=== PATIENT | male | born 1955 | race African-American/Black ===

== ENCOUNTER 2025-04-05 10:49 | Emergency (ER) | payer MEDICARE, MEDICAID ==
[~2025-04-05] VITALS: Ht 188 cm; Wt 109.0 kg
[2025-04-05 10:51] VITALS: O2SAT 99
[2025-04-05] MEDS ORDERED: IBUP-2029 MT (13:18)
[2025-04-05 13:30] VITALS: BP 132/81; PULSE 78; RESP 16; TEMP 36.7; O2SAT 99
== END 2025-04-05 13:30 | disposition home or self-care (01) ==
LOC: ER 10:49
DX: S83.91XA Sprain of unspecified site of right knee, initial encounter (principal); F32.A Depression, unspecified; X58.XXXA Exposure to other specified factors, initial encounter; Y93.01 Activity, walking, marching and hiking; Y92.89 Other specified places as the place of occurrence of the external cause; Y99.8 Other external cause status
CPT/HCPCS: 73562; 99283